=== PATIENT | female | born 1960 | race Caucasian/White ===

== ENCOUNTER 2017-01-01 17:07 | Emergency (ER) | payer OTHER ==
--- NOTE | 2017-01-01 17:52 | ED ORDER SUMMARY ---
..... Patient: ILDA BURKS OrderSheet Formerly [facility] VisitID: [id number] [address] [place] [address] 56y, F Registration Date/Time: 01/01/2017 ORDER SHEET Weight: 79.3 kg (stated) Allergies: No Known Drug Allergy GENERAL ORDERS: Culture, Strep Screen Urgent (17:27 01/01/2017 Nader CortezAHima-C) (Ack 17:29 Marlon) (18:07 GMarshall R.N.) MEDICATION ORDERS: Amoxicillin PO 500 mg (NOW) (17:50 01/01/2017 Nader CortezAHima-C) (17:59 GMarshall R.N.) IV FLUIDS: ORDER SHEET NOTES: [Electronically signed by Niyah Oliveira P.A.-C (18:02 01/01/2017)] [Electronically signed by Malick Son R.N. (18:09 01/01/2017)] [Electronically locked/signed by Malick Son R.N. (18:09 01/01/2017)]
--- NOTE | 2017-01-01 17:52 | ED NURSING NOTES ---
Clinical Report - Nurses [facility] [place] [address] 01/01/2017 17:08 Patient: ILDA BURKS TRIAGE Triage time 17:22. Acuity: LEVEL 3. Chief Complaint: SORE THROAT. Alert. No acute distress. --17:24 Malick Son R.N. 17:22 01/01/17. BP: 140/93. HR: 115. RR: 20. O2 saturation: 98%. Temp: 98.2 F. Pain level now 05/29. --17:24 Malick Son R.N. Weight: 79.3 kg stated. Height/Length: 65 inches Per Patient. BMI: 29.1. --17:23 Malick Son R.N. Medications None. --17:22 Malick Son R.N. Allergies No Known Drug Allergy. --17:22 Malick Son R.N. History Arrived by private vehicle. Historian: patient. Onset. (3 days ago). SOCIAL HX: Smoker- current status unknown. No alcohol use or drug use. --17:24 Malick Son R.N. PROBLEMS: Cellulitis. Tetanus Status. Immunizations. --17:23 Malick Son R.N. PHYSICAL ASSESSMENT GENERAL / NEURO / PSYCH: Alert. Oriented X 4. Appears in no acute distress. HEENT: Voice abnormal. Hoarse voice. RESPIRATORY: Respirations not labored. SKIN: Skin is warm and dry. --17:25 Malick Son R.N. NURSING PROGRESS NOTES Call light placed in reach. Bed placed in lowest position. --17:25 Malick Son R.N. 17:59 01/01/2017 Amoxicillin PO Capsules 500 mg given. --17:59 Malick Son R.N. DISPOSITION / DISCHARGE Departure time: 18:08. No learning barriers present. Discharge instructions provided and reviewed with the patient. Patient verbalized understanding. Written instructions provided in Serbian. --18:08 Malick Son R.N. Locked/Released at 01/01/2017 18:09 by Malick Son R.N.
--- NOTE | 2017-01-01 17:52 | ED NURSING NOTES ---
Clinical Report - Nurses [facility] [place] [address] 01/01/2017 17:08 Patient: ILDA BURKS TRIAGE Triage time 17:22. Acuity: LEVEL 3. Chief Complaint: SORE THROAT. Alert. No acute distress. --17:24 Malick Son R.N. 17:22 01/01/17. BP: 140/93. HR: 115. RR: 20. O2 saturation: 98%. Temp: 98.2 F. Pain level now 05/29. --17:24 Malick Son R.N. Weight: 79.3 kg stated. Height/Length: 65 inches Per Patient. BMI: 29.1. --17:23 Malick Son R.N. Medications None. --17:22 Malick Son R.N. Allergies No Known Drug Allergy. --17:22 Malick Son R.N. History Arrived by private vehicle. Historian: patient. Onset. (3 days ago). SOCIAL HX: Smoker- current status unknown. No alcohol use or drug use. --17:24 Malick Son R.N. PROBLEMS: Cellulitis. Tetanus Status. Immunizations. --17:23 Malick Son R.N. PHYSICAL ASSESSMENT GENERAL / NEURO / PSYCH: Alert. Oriented X 4. Appears in no acute distress. HEENT: Voice abnormal. Hoarse voice. RESPIRATORY: Respirations not labored. SKIN: Skin is warm and dry. --17:25 Malick Son R.N. NURSING PROGRESS NOTES Call light placed in reach. Bed placed in lowest position. --17:25 Malick Son R.N. 17:59 01/01/2017 Amoxicillin PO Capsules 500 mg given. --17:59 Malick Son R.N. DISPOSITION / DISCHARGE Departure time: 18:08. No learning barriers present. Discharge instructions provided and reviewed with the patient. Patient verbalized understanding. Written instructions provided in Faroese. --18:08 Malick Son R.N. Locked/Released at 01/01/2017 18:09 by Malick Son R.N.
--- NOTE | 2017-01-01 17:52 | ED CLINICAL REPORT ---
Clinical Report - Physicians/Mid Levels [facility] [address] [place] [address] 01/01/2017 17:08 Patient: ILDA BURKS Time Seen: 17:28 Jan 01 2017. Arrived- By private vehicle. Historian- patient. HISTORY OF PRESENT ILLNESS Chief Complaint: SORE THROAT. This started 3 days and is still present. Pain described as mild. The patient has had a sore throat. (Patient reports isolated sore throat over the last 3 days, with subjective fevers at home. Denies any nausea or vomiting or cough. Denies sick contacts. Reports 6 months previously had strep throat, was treated, and had improvement of symptoms.). REVIEW OF SYSTEMS No fever, cough, diarrhea, abdominal pain or headache. All systems otherwise negative, except as recorded above. SOCIAL HISTORY Smoker- current status unknown (3 cigs a day, trying to quit). ADDITIONAL NOTES The nursing notes have been reviewed. PHYSICAL EXAM Vital Signs: 01/01/2017 17:22 BP: 140/93. HR: 115. RR: 20. O2 saturation: 98%. Temp: 98.2 F. Appearance: Alert. Head: Normal external inspection. ENT: Nose normal. Pharyngeal erythema. Lips normal. Gums normal. No nasal discharge or purulent nasal discharge. Neck: Lymphadenopathy present. Trachea midline. CVS: Normal heart rate and rhythm. Heart sounds normal. Respiratory: No respiratory distress. Breath sounds normal. Skin: Normal skin color. LABS, X-RAYS, AND EKG Laboratory Tests: Culture, Strep Screen: (FEDE: 01/01/2017 17:25) ( MsgRcvd 01/01/2017 17:51) Final results Test Result Flag Units (Reference) RAPID STREP SCREEN - THROAT CALLED TO: [facility] -- DATE: 01/01/17 POSITIVE SCREEN: RAPID STREP SCREEN: POSITIVE FOR GROUP A STREP . PROGRESS AND PROCEDURES Course of Care: Pt here with pos rapid strep. Pt stable. Pt to f/u outpatient. Uvula midline. No abscess or mass. Patient is stable. Symptoms better. Patient/family counseled. Differential Diagnosis: I considered sepsis, viral infection, flu syndrome, bacterial infection, tuberculosis and histoplasmosis as a possible cause of fever in this patient. This is a partial list of diagnoses considered. Disposition: Discharged. CLINICAL IMPRESSION Acute pharyngitis INSTRUCTIONS Drink plenty of fluids. (salt water rinses). Warnings: Further evaluation is necessary. Prescription Medications: Amoxicillin 500 mg tablets: Take 1 orally every 8 hours for 10 days. Dispense thirty (30). No refills. OTC Medications: Take acetaminophen (Tylenol, Datril, etc.) and ibuprofen (Advil, Nuprin, etc.) according to label instructions. Available over the counter. Follow-up with: Anthony Perez MD, ENT, , [facility], [address] [place] [address], [facility] Follow up. Call for the next available appointment. (Electronically signed by Niyah Oliveira P.A.-C 01/01/2017 18:02)
--- NOTE | 2017-01-01 17:52 | ED CLINICAL REPORT ---
Clinical Report - Physicians/Mid Levels [facility] [address] [place] [address] 01/01/2017 17:08 Patient: ILDA BURKS Time Seen: 17:28 Jan 01 2017. Arrived- By private vehicle. Historian- patient. HISTORY OF PRESENT ILLNESS Chief Complaint: SORE THROAT. This started 3 days and is still present. Pain described as mild. The patient has had a sore throat. (Patient reports isolated sore throat over the last 3 days, with subjective fevers at home. Denies any nausea or vomiting or cough. Denies sick contacts. Reports 6 months previously had strep throat, was treated, and had improvement of symptoms.). REVIEW OF SYSTEMS No fever, cough, diarrhea, abdominal pain or headache. All systems otherwise negative, except as recorded above. SOCIAL HISTORY Smoker- current status unknown (3 cigs a day, trying to quit). ADDITIONAL NOTES The nursing notes have been reviewed. PHYSICAL EXAM Vital Signs: 01/01/2017 17:22 BP: 140/93. HR: 115. RR: 20. O2 saturation: 98%. Temp: 98.2 F. Appearance: Alert. Head: Normal external inspection. ENT: Nose normal. Pharyngeal erythema. Lips normal. Gums normal. No nasal discharge or purulent nasal discharge. Neck: Lymphadenopathy present. Trachea midline. CVS: Normal heart rate and rhythm. Heart sounds normal. Respiratory: No respiratory distress. Breath sounds normal. Skin: Normal skin color. LABS, X-RAYS, AND EKG Laboratory Tests: Culture, Strep Screen: (EFDE: 01/01/2017 17:25) ( MsgRcvd 01/01/2017 17:51) Final results Test Result Flag Units (Reference) RAPID STREP SCREEN - THROAT CALLED TO: [facility] -- DATE: 01/01/17 POSITIVE SCREEN: RAPID STREP SCREEN: POSITIVE FOR GROUP A STREP . PROGRESS AND PROCEDURES Course of Care: Pt here with pos rapid strep. Pt stable. Pt to f/u outpatient. Uvula midline. No abscess or mass. Patient is stable. Symptoms better. Patient/family counseled. Differential Diagnosis: I considered sepsis, viral infection, flu syndrome, bacterial infection, tuberculosis and histoplasmosis as a possible cause of fever in this patient. This is a partial list of diagnoses considered. Disposition: Discharged. CLINICAL IMPRESSION Acute pharyngitis INSTRUCTIONS Drink plenty of fluids. (salt water rinses). Warnings: Further evaluation is necessary. Prescription Medications: Amoxicillin 500 mg tablets: Take 1 orally every 8 hours for 10 days. Dispense thirty (30). No refills. OTC Medications: Take acetaminophen (Tylenol, Datril, etc.) and ibuprofen (Advil, Nuprin, etc.) according to label instructions. Available over the counter. Follow-up with: Anthony Perez MD, ENT, , [facility], [address] [place] [address], [facility] Follow up. Call for the next available appointment. (Electronically signed by Niyah Oliveira P.A.-C 01/01/2017 18:02)
--- NOTE | 2017-01-01 17:52 | ED ORDER SUMMARY ---
..... Patient: ILDA BURKS OrderSheet [facility] VisitID: [id number] [address] [place] [address] 56y, F Registration Date/Time: 01/01/2017 ORDER SHEET Weight: 79.3 kg (stated) Allergies: No Known Drug Allergy GENERAL ORDERS: Culture, Strep Screen Urgent (17:27 01/01/2017 Nader CortezAHima-C) (Ack 17:29 Marlon) (18:07 GMarshall R.N.) MEDICATION ORDERS: Amoxicillin PO 500 mg (NOW) (17:50 01/01/2017 Nader CortezAHima-C) (17:59 GMarshall R.N.) IV FLUIDS: ORDER SHEET NOTES: [Electronically signed by Niyah Oliveira P.A.-C (18:02 01/01/2017)] [Electronically signed by Malick Son R.N. (18:09 01/01/2017)] [Electronically locked/signed by Malick Son R.N. (18:09 01/01/2017)]
--- NOTE | 2017-01-01 18:09 | ED DISCHARGE INSTRUCTIONS ---
Patient: ILDA BURKS General Instructions [facility] VisitID: [id number] [address] [place] [address] 56y, F Registration Date/Time: 01/01/2017 Acute pharyngitis INSTRUCTIONS Drink plenty of fluids. (salt water rinses). Warnings: Further evaluation is necessary. Prescription Medications: Amoxicillin 500 mg tablets: Take 1 orally every 8 hours for 10 days. Dispense thirty (30). No refills. OTC Medications: Take acetaminophen (Tylenol, Datril, etc.) and ibuprofen (Advil, Nuprin, etc.) according to label instructions. Available over the counter. Follow-up with: Anthony Perez MD, ENT, , [facility], [address] [place] [address], [facility], [id number] Follow up. Call for the next available appointment. ADDITIONAL INFORMATION Pharyngitis: Strep [Confirmed] Your test for strep throat was positive. Strep throat is a contagious illness. It is spread by coughing, kissing or by touching others after touching your mouth or nose. Symptoms include throat pain which is worse with swallowing, aching all over, headache and fever. You will be treated with an antibiotic which should make you start to feel better within 1-2 days. Home Care: Rest at home and drink plenty of fluids to avoid dehydration. No school or work for the first two days on antibiotics. You will not be contagious after this time and if you are feeling better, you can return to school or work. Take your antibiotics for a full 10 days, even if you feel better after the first few days of treatment. This is very important to prevent heart or kidney disease that can result as a complication of untreated strep throat infection. Children: Use acetaminophen (Tylenol) for fever, fussiness or discomfort. In infants over six months of age, you may use ibuprofen (Children's Motrin) instead of Tylenol. [NOTE: If your child has chronic liver or kidney disease or ever had a stomach ulcer or GI bleeding, talk with your doctor before using these medicines.] (Aspirin should never be used in anyone under 18 years of age who is ill with a fever. It may cause severe liver damage.)Adults: You may use acetaminophen (Tylenol) or ibuprofen (Motrin, Advil) to control pain or fever, unless another medicine was prescribed for this. [NOTE: If you have chronic liver or kidney disease or ever had a stomach ulcer or GI bleeding, talk with your doctor before using these medicines.] Throat lozenges or sprays (Chloraseptic and others) will reduce pain. Gargling with warm salt water will also reduce throat pain. Dissolve 1/2 teaspoon of salt in 1 glass of warm water. This is especially useful just before meals. Follow Up with your doctor or as directed by our staff if you are not improving over the next week. Get Prompt Medical Attention if any of the following occur: Fever of 100.4F (38C) oral or higher, not better with fever medication New or worsening ear pain, sinus pain or headache Painful lumps in the back of your neck Unable to swallow liquids or open your mouth wide due to throat pain Trouble breathing or noisy breathing Muffled voice New rash You have been given the following additional information: Pharyngitis, Strep (Confirmed) (Electronically signed by Niyah Oliveira P.A.-C 01/01/2017 18:02)
--- NOTE | 2017-01-01 18:09 | ED MED RECONCILIATION SUMMARY ---
Patient: ILDA BURKS Medication Reconciliation Report [facility] VisitID: [id number] [address] [place] [address] 56y, F Registration Date/Time: 01/01/2017 Weight: 79.3 kg Height/Length: 65 in. BMI: 29.1 ALLERGIES: No Known Drug Allergy The patient's Home Medications are listed below: NONE. The source(s) of the original Home Medication information: Not obtained. The following Medications were given to the patient in the Emergency Department: Amoxicillin [PO] PO 500 mg, administered: 01/01/2017 5:59:00 PM The following Medications were prescribed to the patient: Take acetaminophen (Tylenol, Datril, etc.) and ibuprofen (Advil, Nuprin, etc.) according to label instructions. Available over the counter. -- Niyah Oliveira, P.A.-Yoav Amoxicillin 500 mg tablets: Take 1 orally every 8 hours for 10 days. Dispense thirty (30). No refills. -- Niyah Oliveira, P.A.-C
--- NOTE | 2017-01-01 18:09 | ED DISCHARGE INSTRUCTIONS ---
Patient: ILDA BURKS General Instructions [facility] VisitID: [id number] [address] [place] [address] 56y, F Registration Date/Time: 01/01/2017 Acute pharyngitis INSTRUCTIONS Drink plenty of fluids. (salt water rinses). Warnings: Further evaluation is necessary. Prescription Medications: Amoxicillin 500 mg tablets: Take 1 orally every 8 hours for 10 days. Dispense thirty (30). No refills. OTC Medications: Take acetaminophen (Tylenol, Datril, etc.) and ibuprofen (Advil, Nuprin, etc.) according to label instructions. Available over the counter. Follow-up with: Anthony Perez MD, ENT, , [facility], [address] [place] [address], [facility], [address] Follow up. Call for the next available appointment. ADDITIONAL INFORMATION Pharyngitis: Strep [Confirmed] Your test for strep throat was positive. Strep throat is a contagious illness. It is spread by coughing, kissing or by touching others after touching your mouth or nose. Symptoms include throat pain which is worse with swallowing, aching all over, headache and fever. You will be treated with an antibiotic which should make you start to feel better within 1-2 days. Home Care: Rest at home and drink plenty of fluids to avoid dehydration. No school or work for the first two days on antibiotics. You will not be contagious after this time and if you are feeling better, you can return to school or work. Take your antibiotics for a full 10 days, even if you feel better after the first few days of treatment. This is very important to prevent heart or kidney disease that can result as a complication of untreated strep throat infection. Children: Use acetaminophen (Tylenol) for fever, fussiness or discomfort. In infants over six months of age, you may use ibuprofen (Children's Motrin) instead of Tylenol. [NOTE: If your child has chronic liver or kidney disease or ever had a stomach ulcer or GI bleeding, talk with your doctor before using these medicines.] (Aspirin should never be used in anyone under 18 years of age who is ill with a fever. It may cause severe liver damage.)Adults: You may use acetaminophen (Tylenol) or ibuprofen (Motrin, Advil) to control pain or fever, unless another medicine was prescribed for this. [NOTE: If you have chronic liver or kidney disease or ever had a stomach ulcer or GI bleeding, talk with your doctor before using these medicines.] Throat lozenges or sprays (Chloraseptic and others) will reduce pain. Gargling with warm salt water will also reduce throat pain. Dissolve 1/2 teaspoon of salt in 1 glass of warm water. This is especially useful just before meals. Follow Up with your doctor or as directed by our staff if you are not improving over the next week. Get Prompt Medical Attention if any of the following occur: Fever of 100.4F (38C) oral or higher, not better with fever medication New or worsening ear pain, sinus pain or headache Painful lumps in the back of your neck Unable to swallow liquids or open your mouth wide due to throat pain Trouble breathing or noisy breathing Muffled voice New rash You have been given the following additional information: Pharyngitis, Strep (Confirmed) (Electronically signed by Niyah Oliveira P.A.-C 01/01/2017 18:02)
--- NOTE | 2017-01-01 18:09 | ED MED RECONCILIATION SUMMARY ---
Patient: ILDA BURKS Medication Reconciliation Report [facility] VisitID: [id number] [address] [place] [address] 56y, F Registration Date/Time: 01/01/2017 Weight: 79.3 kg Height/Length: 65 in. BMI: 29.1 ALLERGIES: No Known Drug Allergy The patient's Home Medications are listed below: NONE. The source(s) of the original Home Medication information: Not obtained. The following Medications were given to the patient in the Emergency Department: Amoxicillin [PO] PO 500 mg, administered: 01/01/2017 5:59:00 PM The following Medications were prescribed to the patient: Take acetaminophen (Tylenol, Datril, etc.) and ibuprofen (Advil, Nuprin, etc.) according to label instructions. Available over the counter. -- Niyah Oliveira, P.A.-Yoav Amoxicillin 500 mg tablets: Take 1 orally every 8 hours for 10 days. Dispense thirty (30). No refills. -- Niyah Oliveira, P.A.-C
--- NOTE | 2017-01-01 18:09 | ED MAR SUMMARY ---
..... Medication Administration Record [facility] [address] [place] [address] Patient: ILDA BURKS Visit ID: [id number] 56y, F Weight: 79.3 kg Height/Length: 65 in BMI: 29.1 ALLERGIES: No Known Drug Allergy Given 17:59 01/01/2017 Malick Son R.N. Medication Administered: AMOXICILLIN [PO], Dose: 500 mg Capsules PO. Medication Ordered: Amoxicillin PO 500 mg (NOW).
--- NOTE | 2017-01-01 18:09 | ED MAR SUMMARY ---
..... Medication Administration Record [facility] [address] [place] [address] Patient: ILDA BURKS Visit ID: [id number] 56y, F Weight: 79.3 kg Height/Length: 65 in BMI: 29.1 ALLERGIES: No Known Drug Allergy Given 17:59 01/01/2017 Malick Son R.N. Medication Administered: AMOXICILLIN [PO], Dose: 500 mg Capsules PO. Medication Ordered: Amoxicillin PO 500 mg (NOW).
== END 2017-01-01 18:15 | disposition home or self-care (01) ==
LOC: ED SRH 17:07
DX: J02.9 Acute pharyngitis, unspecified (principal)
CPT/HCPCS: 90154